=== PATIENT | male | born 1975 | race Caucasian/White ===

== ENCOUNTER 2017-02-13 08:40 | Emergency (ER) | payer SELFPAY ==
[2017-02-13] MEDS ORDERED: GABAPENTIN 300 MG CAPSULE PO ONE (09:46)
[2017-02-13] MEDS ORDERED: HYDROMORPHONE HCL INJ/PF 2 MG/ML AMPULE IM ONE (09:46)
[2017-02-13] MEDS ORDERED: KETOROLAC TROMETHAMINE 60 MG/2 ML SDV IM ONE (09:46)
--- NOTE | 2017-02-13 09:51 | ER Document Report ---
ED General - General Chief Complaint: Low Back Pain Stated Complaint: BACK PAIN Time Seen by Provider: 02/13/17 09:45 TRAVEL OUTSIDE OF THE [place] IN LAST 30 DAYS: No - HPI Patient complains to provider of: Left leg pain sciatica Notes: Patient coming in for evaluation of left leg pain and sciatica. Patient has a recent diagnosis of sciatica from a chiropractor and his PCP patient was started on a Medrol Dosepaks and was given a muscle relaxer states no relief in his pain. Patient states pain from the left buttock cheek down to the middle of the knee. Denies any numbness or tingling painful ambulation, the patient walking with a limping gait. Denies any saddle anesthesias bowel or bladder dysfunction. - Related Data Allergies/Adverse Reactions: No Known Allergies Allergy (Verified 02/13/17 08:41) Home Medications: Current Home Medications Methylprednisolone [Medrol Dosepack (4 mg/Tab) 21 Tab/Dosepak] 1 tab PO TID 04/28 [History] Past Medical History - Social History Smoking Status: Current Every Day Smoker Chew tobacco use (# tins/day): No Frequency of alcohol use: Social Drug Abuse: None Family History: Reviewed & Not Pertinent Patient has suicidal ideation: No Patient has homicidal ideation: No Renal/ Medical History: Denies: Hx Peritoneal Dialysis Review of Systems - Review of Systems Constitutional: No symptoms reported EENT: No symptoms reported Cardiovascular: No symptoms reported Respiratory: No symptoms reported Gastrointestinal: No symptoms reported Genitourinary: No symptoms reported Male Genitourinary: No symptoms reported Musculoskeletal: Back pain Skin: No symptoms reported Hematologic/Lymphatic: No symptoms reported Neurological/Psychological: No symptoms reported -: Yes All other systems reviewed and negative Physical Exam - Vital signs Vitals: Temp Pulse Resp BP Pulse Ox 97.7 F 92 18 152/78 H 98 02/13/17 08:47 02/13/17 08:47 02/13/17 08:47 02/13/17 08:47 02/13/17 08:47 Interpretation: Normal - General General appearance: Appears well, Alert - HEENT Head: Normocephalic, Atraumatic Eyes: Normal Pupils: PERRL - Respiratory Respiratory status: No respiratory distress Chest status: Nontender Breath sounds: Normal Chest palpation: Normal - Cardiovascular Rhythm: Regular Heart sounds: Normal auscultation Murmur: No - Abdominal Inspection: Normal Distension: No distension Bowel sounds: Normal Tenderness: Nontender Organomegaly: No organomegaly - Genitourinary Notes: Palpation of the buttocks along the piriformis muscle does reproduce this sharp shooting symptoms on the patient's leg. - Back Back: Normal, Nontender - Extremities General upper extremity: Normal inspection, Nontender, Normal color, Normal ROM , Normal temperature General lower extremity: Normal inspection, Nontender, Normal color, Normal ROM , Normal temperature, Normal weight bearing. No: Jason's sign - Neurological Neuro grossly intact: Yes Cognition: Normal Orientation: AAOx4 [place] Coma Scale Eye Opening: Spontaneous [place] Coma Scale Verbal: Oriented [place] Coma Scale Motor: Obeys Commands [place] Coma Scale Total: 15 Speech: Normal Motor strength normal: LUE, RUE, LLE, RLE Sensory: Normal - Psychological Associated symptoms: Normal affect, Normal mood - Skin Skin Temperature: Warm Skin Moisture: Dry Skin Color: Normal Course - Re-evaluation Re-evalutation: 02/13/17 14:58 Patient's examination is consistent with sciatica. Patient is Syed had back x- rays performed at his chiropractor's office and on the last 2 3 days. I do not see the utility performing any other x-rays at this time. Patient does not meet any criteria that would warrant an emergent MRI. No bowel or bladder function deep tendon reflexes are intact he patient will be discharged home pain medication. Patient was educated about use of piriformis muscle stretches. - Vital Signs Vital signs: Temp Pulse Resp BP Pulse Ox 98.1 F 79 18 145/92 H 94 02/13/17 10:33 02/13/17 10:33 02/13/17 10:33 02/13/17 10:33 02/13/17 10:33 Discharge - Discharge Clinical Impression: Sciatica Qualifiers: Laterality: left Qualified Code(s): M54.32 - Sciatica, left side Condition: Good Disposition: HOME, SELF-CARE Instructions: Ice Packs ([facility]), Low Back Pain ([facility]), Oral Narcotic Medication ( [facility]), Sciatica ([facility]) Additional Instructions: Your examination is consistent with sciatica. This is been a nerve is irritated and the pain will shoot down the leg. I would highly recommend performing piriformis muscle stretches. May take pain medication as prescribed. I recommend a regiment of Tylenol and Motrin along with the pain medication prescribed also take the Neurontin as prescribed to. I would highly recommend following up with your PCP in the next 2 3 days for possible further imaging more than x-ray. Repeating x-rays at this time would not give us any benefit which is more or less exposure to more radiation. Return to the ER if symptoms worsen. I would highly recommend taking Motrin or Tylenol along with the prescribed pain medication. Prescriptions: Gabapentin [Neurontin 300 mg Capsule] 300 mg PO Q12 #60 capsule Oxycodone HCl 5 - 10 mg PO Q6 PRN #45 tablet PRN Reason: Forms: Return to Work
[2017-02-13 10:37] VITALS: BP 145/92
== END 2017-02-13 10:37 | disposition home or self-care (01) ==
LOC: ER 08:40
DX: M54.32 Sciatica, left side (principal); M54.5 Low back pain; Z79.899 Other long term (current) drug therapy; F17.200 Nicotine dependence, unspecified, uncomplicated
CPT/HCPCS: 99283; 96372; J1885; J1170